=== PATIENT | female | born 1950 | race Two or more races ===

== ENCOUNTER 2023-08-19 08:32 | Day surgery (SDC) | payer MEDICARE, OTHER ==
[2023-08-19] VITALS (13 sets, daily range): BP systolic 103–174; BP diastolic 60–111; PULSE 55–127; RESP 16; TEMP 97.7; O2SAT 90–98
[~2023-08-19] VITALS: Ht 152.4 cm; Wt 61.2 kg
[2023-08-19] MEDS ORDERED: METO-395 PO (08:59)
[2023-08-19] MEDS ORDERED: LISI10TA27 PO (08:59)
[2023-08-19] MEDS ORDERED: APIX5TAB5 PO (08:59)
[2023-08-19] MEDS ORDERED: AMI200T PO (08:59)
[2023-08-19 09:24] LABS: BASOPHILS # (AUTO) 0.1 X10'3 (0-0.2); BASOPHILS % (AUTO) 1.1 % (0-1); EOSINOPHILS # (AUTO) 0.1 X10'3 (0-0.9); EOSINOPHILS % (AUTO) 1.2 % (0-6); HEMATOCRIT 45.6 % (35.0-45.0); HEMOGLOBIN 15.5 g/dl (12.0-16.0); LYMPHOCYTES # (AUTO) 1.4 X10'3 (1.1-4.8); LYMPHOCYTES % (AUTO) 25.1 % (21-51); MEAN CORPUSCULAR HEMOGLOBIN 32.4 PG (27.0-31.0); MEAN CORPUSCULAR HGB CONC 33.9 g/dL (33.0-36.5); MEAN CORPUSCULAR VOLUME 95.7 FL (78-98); MEAN PLATELET VOLUME 8.2 FL (7.4-10.4); MONOCYTES # (AUTO) 0.5 X10'3 (0-0.9); MONOCYTES % (AUTO) 8.5 % (2-12); NEUTROPHILS # (AUTO) 3.6 X10'3 (1.8-7.7); NEUTROPHILS % (AUTO) 64.1 % (42-75); PLATELET COUNT 218 X10'3 (140-440); RED BLOOD COUNT 4.77 X10'6 (4.20-5.60); RED CELL DISTRIBUTION WIDTH 14.2 % (11.5-14.5); WHITE BLOOD COUNT 5.6 X10'3 (4.5-11.0)
[2023-08-19 09:52] LABS: PROTHROMBIN TIME 10.9 SECONDS (9.0-12.0)
[2023-08-19] MEDS: MIDAZolam 1mg/ml 10ml vial IV ONE (10:08)
[2023-08-19] MEDS: fentaNYL/PF 50MCG/1 ML 2ML syringe IV ONE (10:09)
[2023-08-19] MEDS: normal saline 1000ml 1,000 ML IV SCH (10:09)
[2023-08-19 10:57] LABS: ALBUMIN 3.3 G/DL (3.4-5.0); ANION GAP 10 (8-16); BLOOD UREA NITROGEN 12 MG/DL (7-18); BUN/CREATININE RATIO 15.6 (10.0-20.0); CALCIUM 9.2 MG/DL (8.5-10.1); CHLORIDE 105 MMOL/L (99-107); CREATININE 0.77 MG/DL (0.40-0.90); GLUCOSE 93 MG/DL (70-104); MAGNESIUM 1.9 MG/DL (1.5-2.4); POTASSIUM 4.2 MMOL/L (3.5-5.1); SODIUM 141 MMOL/L (135-145); TOTAL CARBON DIOXIDE 26.3 MMOL/L (24-32); eCRCL 45 ML/MIN; eGFR 73 ML/MIN
== END 2023-08-19 11:05 | disposition home or self-care (01) ==
LOC: SSTAY O 08:32
PROVIDERS: ATTEND Internal Medicine Cardiovascular Disease
DX: I48.0 Paroxysmal atrial fibrillation (principal); I48.3 Typical atrial flutter; Z79.899 Other long term (current) drug therapy; Z79.01 Long term (current) use of anticoagulants
CPT/HCPCS: 36415; 80048; 83735; 85025; 85610; 92960; 93005; J2250; J3010; J7030; A4620